=== PATIENT | male | born 1995 | race American Indian/Alaskan Native ===

== ENCOUNTER 2020-07-10 12:59 | Emergency (ER) | payer SELFPAY ==
[2020-07-10 13:16] VITALS: BP 111/60
--- NOTE | 2020-07-10 16:47 | Emergency Department Report ---
ED General Adult HPI - General Chief complaint: Fever Stated complaint: WEAK/FEVER/BLISTERS Time Seen by Provider: 07/10/20 16:05 Source: patient Mode of arrival: Ambulatory Limitations: No Limitations - History of Present Illness Initial comments: Patient complaining of feeling cold weak and chills that started last night he denies any cough he reports feeling like he had a fever but has not taken his temperature. Patient also complains of round circular rash to his face dry patches the rash is not draining and is not painful there is no redness. He denies any past medical history -: Last night Location: face Quality: aching Associated Symptoms: fever/chills, rash. denies: chest pain, cough, diaphoresis, headaches, loss of appetite, malaise, nausea/vomiting, shortness of breath Treatments Prior to Arrival: none - Related Data Previous Rx's Medication Instructions Recorded Last Taken Type Clotrimazole/Betamethasone Dip 1 applicatio TP BID 7 Days #45 gm 07/10/20 U nknown Rx [Lotrisone Cream] Allergies Allergy/AdvReac Type Severity Reaction Status Date / Time No Known Allergies Allergy Unverified 07/10/20 13:11 ED Review of Systems ROS: Stated complaint: WEAK/FEVER/BLISTERS Other details as noted in HPI Comment: All other systems reviewed and negative Constitutional: denies: chills, fever ENT: denies: ear pain Respiratory: cough Cardiovascular: denies: chest pain, palpitations, dyspnea on exertion, edema Endocrine: denies: excessive sweating, unexplained weight gain Gastrointestinal: denies: abdominal pain, nausea, vomiting Musculoskeletal: denies: back pain Skin: rash (Round circular dry patch around to the left lower face) Psychiatric: denies: anxiety Hematological/Lymphatic: denies: easy bleeding ED Past Medical Hx - Past Medical History Previous Medical History?: No - Surgical History Past Surgical History?: No - Social History Smoking Status: Never Smoker Substance Use Type: Alcohol - Medications Home Medications: Home Medications Medication Instructions Recorded Confirmed Last Taken Type Clotrimazole/Betamethasone Dip 1 applicatio TP BID 7 Days #45 gm 07/10/20 Unknown Rx [Lotrisone Cream] ED Physical Exam - General Limitations: No Limitations General appearance: alert, in no apparent distress - Head Head exam: Present: atraumatic - Eye Eye exam: Present: normal appearance - ENT ENT exam: Present: normal exam, normal orophraynx, mucous membranes moist, TM's normal bilaterally - Neck Neck exam: Absent: lymphadenopathy - Respiratory Respiratory exam: Present: normal lung sounds bilaterally. Absent: respiratory distress, wheezes, rales, rhonchi - Cardiovascular Cardiovascular Exam: Present: regular rate, normal heart sounds - GI/Abdominal GI/Abdominal exam: Present: soft, normal bowel sounds. Absent: distended, tenderness, guarding, rebound - Rectal Rectal exam: Absent: deferred - exam: Present: normal inspection External exam: Present: normal external exam - Extremities Exam Extremities exam: Present: normal inspection - Back Exam Back exam: Present: normal inspection - Neurological Exam Neurological exam: Present: alert, oriented X3 - Psychiatric Psychiatric exam: Present: normal affect - Skin Skin exam: Present: warm, dry (Dry circular patch noted to the left lower cheek and 1 to the right lower cheek) ED Course Vital Signs 07/10/20 13:14 Temperature 98.6 F Pulse Rate 105 H Respiratory 16 Rate Blood Pressure 111/60 O2 Sat by Pulse 98 Oximetry ED Medical Decision Making - Medical Decision Making 24-year-old male reports chills body aches and feeling fatigue and tired symptoms started last night he denies any cough no nausea no vomiting. He also mentioned having a rash to his face that has been there for few weeks rash appears to be ringworm patient symptoms appears to be just a viral illness possible influenza. Instruct patient to rest hydrate follow-up with his primary care doctor for any worsening symptoms or if no improvement patient also given flyer with locations for Covid testing if needed Critical Care Time: No Critical care attestation.: If time is entered above; I have spent that time in minutes in the direct care of this critically ill patient, excluding procedure time. ED Disposition Clinical Impression: Viral illness, Flu-like symptoms, Facial ringworm Disposition: DC-01 TO HOME OR SELFCARE Is pt being admited?: No Does the pt Need Aspirin: No Condition: Stable Instructions: Viral Respiratory Infection, [id number], Hand Washing, [id number], Body Ringworm, Influenza, Adult, [id number] Additional Instructions: Rest increase your oral intake 6 to 8 glasses a week per day okay to take Advil or Tylenol as prescribed by package insert for body ache fever. Please follow- up with your primary care doctor or to Dr. Aguirre in 3 to 5 days if no improvement or your symptoms are worsening Prescriptions: Clotrimazole/Betamethasone Dip [Lotrisone Cream] 1 applicatio TP BID 7 Days #45 gm Referrals: PRIMARY CARE, [Primary Care Provider] - 3-5 Days Time of Disposition: 17:02
== END 2020-07-10 17:08 | disposition home or self-care (01) ==
LOC: ED 12:59
DX: B34.9 Viral infection, unspecified (principal); B35.8 Other dermatophytoses; Z79.899 Other long term (current) drug therapy
CPT/HCPCS: 99281